=== PATIENT | female | born 1965 | race Caucasian/White ===

== ENCOUNTER → 2016-10-20 | Outpatient (CLI) | payer OTHER | LOC: MC.RAD 07:54 | DX: Z12.31 Encounter for screening mammogram for malignant neoplasm of breast (principal); N64.89 Other specified disorders of breast ==

== ENCOUNTER → 2016-10-25 | Outpatient (CLI) | payer OTHER | LOC: MC.RAD 07:21 | DX: N64.89 Other specified disorders of breast (principal) ==

== ENCOUNTER → 2017-01-26 | Outpatient (CLI) | payer OTHER ==
[2017-01-26 15:02] LABS: HIV 1/2 Antibodies Non-Reactive; HIV-1p24 Antigen Non-Reactive
== END ==
LOC: COL.LAB 10:04
PROVIDERS: Orthopaedic Surgery
DX: Z01.812 Encounter for preprocedural laboratory examination (principal); M17.12 Unilateral primary osteoarthritis, left knee

== ENCOUNTER → 2017-02-19 | Outpatient (CLI) | payer OTHER | LOC: COL.RAD 15:11 | DX: I77.810 Thoracic aortic ectasia (principal); Z98.890 Other specified postprocedural states | CPT/HCPCS: J7050; Q9967 ==

== ENCOUNTER → 2017-03-22 | Outpatient (CLI) | payer OTHER | LOC: COL.PUL 07:42 | DX: R06.02 Shortness of breath (principal); Z77.22 Contact with and (suspected) exposure to environmental tobacco smoke (acute) (chronic) ==

== ENCOUNTER → 2017-12-13 | Outpatient (CLI) | payer OTHER | LOC: MC.RAD 14:17 | DX: Z12.31 Encounter for screening mammogram for malignant neoplasm of breast (principal) ==

== ENCOUNTER → 2019-01-07 | Outpatient (CLI) | payer OTHER | LOC: MC.RAD 08:45 | DX: Z12.31 Encounter for screening mammogram for malignant neoplasm of breast (principal) ==

== ENCOUNTER → 2020-01-09 | Outpatient (CLI) | payer OTHER | LOC: MC.RAD 07:31 | DX: Z12.31 Encounter for screening mammogram for malignant neoplasm of breast (principal) ==

== ENCOUNTER → 2021-01-14 | Outpatient (CLI) | payer OTHER | LOC: MC.RAD 09:23 | DX: Z12.31 Encounter for screening mammogram for malignant neoplasm of breast (principal) ==

== ENCOUNTER → 2022-08-15 | Outpatient (CLI) | payer OTHER | LOC: MHCPAIN 12:48 | DX: M47.896 Other spondylosis, lumbar region (principal); M54.16 Radiculopathy, lumbar region; I10 Essential (primary) hypertension | CPT/HCPCS: G0463 ==

== ENCOUNTER → 2022-08-16 | Outpatient (CLI) | payer OTHER | LOC: COL.RAD 14:20 | DX: M43.16 Spondylolisthesis, lumbar region (principal) ==

== ENCOUNTER → 2023-01-16 | Outpatient (CLI) | payer OTHER | LOC: MHCPAIN 13:05 | DX: M54.16 Radiculopathy, lumbar region (principal); M54.2 Cervicalgia; M48.02 Spinal stenosis, cervical region; I10 Essential (primary) hypertension | CPT/HCPCS: G0463 ==

== ENCOUNTER → 2023-01-19 | Outpatient (CLI) | payer OTHER | LOC: CANSCHCLI → MC.RAD 07:00 | DX: Z12.31 Encounter for screening mammogram for malignant neoplasm of breast (principal) ==

== ENCOUNTER → 2023-03-12 | Outpatient (CLI) | payer OTHER ==
[~2023-03-12] MED LIST: AMBIEN 5MG TABLE5 MG PO; ATROVENT NASAL15 ML NS; DESYREL 50MG50 MG PO; EDARB4025TAB PO; LIDEX OINT15GM TP; MOBIC15 MG PO; NEURONTIN300 MG/CAP PO; NORVASC 5MG5 MG/TAB PO; PRILOSEC 20MG20 MG PO; PROAIR HFA0.09 MG/AC IH; TIROSINT75 MC1 PO; UBRELVY50 MG PO; ULTRAM 50MG TAB50 MG PO; WEGOVY1 MG/0.5 M SQ; ZANAFLEX2 MG PO; ZYRTEC 10MG10 MG PO
== END ==
LOC: COL.RAD 12:58 → MC.RAD 13:00
DX: C50.412 Malignant neoplasm of upper-outer quadrant of left female breast (principal)
CPT/HCPCS: A9520-JZ; C1769

== ENCOUNTER → 2024-01-21 | Outpatient (CLI) | payer OTHER ==
[~2024-01-21] MED LIST changes: +Iohexol 300 - 10 ML VIAL IV ONE; +Triamcinolone 40 MG/ML 1 ML VIAL IJ ONE
== END ==
LOC: COL.RAD 08:37
DX: M25.551 Pain in right hip (principal)
CPT/HCPCS: J0665; J3301; Q9967

== ENCOUNTER → 2024-02-01 | Outpatient (CLI) | payer OTHER ==
[~2024-02-01] MED LIST changes: -Iohexol 300 - 10 ML VIAL IV ONE; -Triamcinolone 40 MG/ML 1 ML VIAL IJ ONE
== END ==
LOC: MC.RAD 07:16
DX: Z12.31 Encounter for screening mammogram for malignant neoplasm of breast (principal)